=== PATIENT | male | born 1950 | race Caucasian/White ===

== ENCOUNTER 2016-12-13 09:45 | Outpatient (CLI) | payer MEDICARE, OTHER | END 2016-12-13 09:55 | LOC: LAB 09:45 | PROVIDERS: ATTEND Family Medicine | DX: R73.09 Other abnormal glucose (principal); I10 Essential (primary) hypertension | CPT/HCPCS: 36415; 83036 ==

== ENCOUNTER 2017-06-19 09:19 | Outpatient (CLI) | payer MEDICARE, OTHER ==
[2017-06-19 09:38] LABS: BASOPHILS % 0.8 (0.0-1.5); EOSINOPHILS % 2.6 % (0.0-6.8); MEAN CORPUSCULAR HEMOGLOBIN 33.1 pg (28.0-34.0); MEAN CORPUSCULAR VOLUME 97.6 fl (80.0-100.0); MONOCYTES % 4.8 % (0.0-11.0); NEUTROPHILS # 6.4 # k/uL (1.4-7.7)
[2017-06-19 10:04] LABS: eGFR (African) > 60; eGFR (Non-African) > 60
== END 2017-06-19 09:20 ==
LOC: LAB 09:19
PROVIDERS: ATTEND Family Medicine
DX: E78.00 Pure hypercholesterolemia, unspecified (principal); E11.9 Type 2 diabetes mellitus without complications; I10 Essential (primary) hypertension; N40.0 Benign prostatic hyperplasia without lower urinary tract symptoms
CPT/HCPCS: 36415; 80053; 80061; 83036; 84153; 85025

== ENCOUNTER 2018-06-30 08:05 | Outpatient (CLI) | payer MEDICARE, OTHER ==
[2018-06-30 08:30] LABS: BASOPHILS % 0.6 (0.0-1.5); EOSINOPHILS % 2.5 % (0.0-6.8); MEAN CORPUSCULAR HEMOGLOBIN 32.6 pg (28.0-34.0); MEAN CORPUSCULAR VOLUME 97.3 fl (80.0-100.0); MONOCYTES % 5.3 % (0.0-11.0); NEUTROPHILS # 5.2 # k/uL (1.4-7.7)
[2018-06-30 08:51] LABS: eGFR (African) > 60; eGFR (Non-African) > 60
== END 2018-06-30 08:06 ==
LOC: LAB 08:05
PROVIDERS: ATTEND Family Medicine
DX: E78.00 Pure hypercholesterolemia, unspecified (principal); I10 Essential (primary) hypertension
CPT/HCPCS: 36415; 80053; 80061; 85025

== ENCOUNTER 2018-12-26 14:24 | Outpatient (CLI) | payer MEDICARE, OTHER | END 2018-12-26 14:25 | LOC: LAB 14:24 | PROVIDERS: ATTEND Family Medicine | DX: E11.9 Type 2 diabetes mellitus without complications (principal) | CPT/HCPCS: 36415; 83036 ==

== ENCOUNTER 2019-06-26 09:44 | Outpatient (CLI) | payer MEDICARE, OTHER ==
[2019-06-26 11:00] LABS: A1C 5.3 % (<5.7)
[2019-06-26 11:14] LABS: TSH 3.31 mIU/l (0.465-4.685)
== END 2019-06-26 09:46 ==
LOC: LAB 09:44
PROVIDERS: ATTEND Family Medicine
DX: E11.9 Type 2 diabetes mellitus without complications (principal)
CPT/HCPCS: 36415; 80061; 83036; 84443